=== PATIENT | male | born 1950 | race Caucasian/White ===

== ENCOUNTER 2018-06-23 17:53 | Observation (INO) ==
[2018-06-23] MEDS ORDERED: Heparin 10,000 UNITS/10 ML Vial (for IV use) IV.PUSH STA (18:24)
--- NOTE | 2018-06-23 18:24 | ED ---
HPI General Chief Complaint: Recheck/Abnormal Lab/Rx Stated Complaint: Had cat scan/blood clot rt palm artery Time Seen by Provider: 06/23/18 18:04 Source: patient Mode of arrival: ambulatory Limitations: no limitations History of Present Illness HPI narrative: The patient is a 67-year-old male who presents to the emergency department via private vehicle after he was called for an abnormal CT pulmonary angiogram. Patient has a history of colon cancer that was diagnosed 6 months ago, he is currently undergoing chemotherapy at the [facility] in [place], [place]. The patient's last round of chemotherapy was on Wednesday and Wednesday at the [facility] via a port in the right upper chest wall. The patient states he knows he has a tumor on the right colon just inferior to the liver. The patient did have right lower extremity 2 weeks ago and had an outpatient Doppler which was negative per his report. He denies any history of pulmonary embolism or DVT. He denies any significant chest pain, shortness of breath, pleuritic chest pain, or exertional symptoms. The patient received a call from the [facility] advising him to come to the emergency department. The patient did not have a copy of the CT results or a disc containing the CT thorax. complaint: Reports abnormal lab Initial visit (ago): hour(s) Initial visit for: other Returns today for: called because of abnormal lab/test Description of abnormal result: CT pulmonary angiogram performed at the [facility] that was positive for pulmonary embolism in the right pulmonary artery Symptoms since prior visit: Reports no new symptoms Context: Reports called for abnormal lab result Associated symptoms: Reports none Related Data Home Medications Medication Instructions Recorded Confirmed omeprazole 1 tab PO DAILY 06/23/18 06/23/18 potassium chloride See Label Instructions .ROUTE 06/23/18 06/23/18 .COMPLEX Allergies Allergy/AdvReac Type Severity Reaction Status Date / Time No Known Allergies Allergy Verified 06/23/18 17:58 Review of Systems ROS: all other systems reviewed are negative PMFSH Medical History Medical History Colon cancer (Acute) History of radiation therapy (Acute) Surgical History Surgical History History of bowel resection (Acute) History of vascular access device (Acute) Hx of BKA (Acute) Status post chemotherapy, time since less than 4 weeks (Acute) Social History Social History Smoking Status: Former smoker How Often Do You Have a Drink Containing Alcohol: Never Exam Narrative Exam Narrative: GENERAL: Awake, alert, very pleasant 67-year-old male who appears his stated age and is in no acute respiratory distress. SKIN: Focused skin assessment warm/dry. HEAD: Atraumatic. Normocephalic. EYES: No injection or drainage. No icterus. ENT: No nasal bleeding or discharge. Mucous membranes pink and moist. NECK: Trachea midline. No JVD. CARDIOVASCULAR: Regular rate and rhythm. No murmur appreciated. Heart rate in the 60s. RESPIRATORY: No accessory muscle use. Clear to auscultation. Breath sounds equal bilaterally. GASTROINTESTINAL: Abdomen soft, non-tender, nondistended. MUSCULOSKELETAL: Left below-knee amputation with prosthesis in place. Mild edema the right lower extremity. NEUROLOGICAL: Awake and alert. No obvious cranial nerve deficits. Motor grossly within normal limits. Normal speech. PSYCHIATRIC: Appropriate mood and affect; insight and judgment normal. Course Initial Documented Vital Signs Temperature 98.0 F 06/23/18 17:56 Pulse Rate 53 L 06/23/18 17:56 Respiratory Rate 16 06/23/18 17:56 Blood Pressure 191/82 H 06/23/18 17:56 Pulse Oximetry 98 06/23/18 17:56 Last Documented Vital Signs Temperature 98.0 F 06/23/18 17:56 Pulse Rate 53 L 06/23/18 17:56 Respiratory Rate 16 06/23/18 17:56 Blood Pressure 191/82 H 06/23/18 17:56 Pulse Oximetry 97 06/23/18 18:16 Medical Decision Making MDM Narrative Medical decision making narrative: The patient's port was accessed. We attempted to obtain the CT results from the [facility] to evaluate the burden of the pulmonary embolism on CT. The patient does have a risk factor with colon cancer and right lower extremity edema. Patient may need an echocardiogram to evaluate for right ventricular strain and a report of the CT to evaluate the burden of the pulmonary embolism. I discussed the patient with Dr. Smith who agrees with admission and recommends heparin until the studies are obtained. The patient was in no distress in the emergency department, no evidence of dyspnea, tachycardia, or tachypnea. I believe the patient can go on a heparin drip to a telemetry bed and we will attempt to obtain the CT results from the [facility]. However, it is 623 when we are attempting to obtain records from the [facility]. We were able to obtain CT results. CT of the chest revealed intraluminal filling defects within the pulmonary artery branch directed to the posterior segment of the right lower lobe suggestive of active pulmonary embolic disease, subtle filling defect in a branch point of the pulmonary artery directed to the lingular segments of the left upper lobe could represent an additional tiny embolus. The patient's BNP is minimally elevated, troponin is negative. I believe that the patient's echocardiogram is negative for right ventricular strain tomorrow the patient most likely can be transitioned to oral anticoagulants and discharged home. Medical Screen Exam Complete: Yes Emergency Medical Condition: Yes Differential Diagnosis Differential Diagnosis: Differential diagnosis includes pulmonary embolism, DVT , hypercoagulopathy, colon cancer, pleural effusion, pneumonia, bronchitis. Lab Data Lab results reviewed: Yes I reviewed the patient's lab results. Lab results narrative: The patient's potassium is low at 3.1 Result diagrams: 06/23/18 18:51 06/23/18 18:51 Lab Results 06/23/18 06/23/18 06/23/18 Range/Units 18:51 18:51 18:51 CBC w Diff Auto diff final WBC 3.4 L (4.0-11.0) th/mm3 RBC 2.80 L (4.50-5.90) mil/mm3 Hgb 9.4 L (13.0-17.0) gm/dL Hct 28.0 L (39.0-51.0) % MCV 99.9 (80.0-100.0) fL MCH 33.4 (27.0-34.0) pg MCHC 33.5 (32.0-36.0) % RDW 15.5 (11.6-17.2) % Plt Count 232 (150-450) th/mm3 MPV 6.5 L (7.0-11.0) fL Neut % (Auto) 67.7 (16.0-70.0) % Lymph % (Auto) 28.1 (9.0-44.0) % Centre % (Auto) 1.2 (0.0-8.0) % Eos % (Auto) 2.1 (0.0-4.0) % Baso % (Auto) 0.9 (0.0-2.0) % Neut # (Auto) 2.3 (1.8-7.7) th/mm3 Lymph # (Auto) 1.0 (1.0-4.8) th/mm3 Centre # (Auto) 0.0 (0.0-0.9) th/mm3 Eos # (Auto) 0.1 (0.0-0.4) th/mm3 Baso # (Auto) 0.0 (0.0-0.2) th/mm3 WBC Differential . Differential Comment . PT 10.3 (9.8-11.6) sec INR 1.0 Ratio APTT 25.1 (24.3-30.1) sec Sodium 140 (136-145) meq/L Potassium 3.1 L (3.5-5.1) meq/L Chloride 106 (98-107) meq/L Carbon Dioxide 26.6 (21.0-32.0) meq/L Anion Gap 7 (5-15) meq/L BUN 12 (7-18) mg/dL Creatinine 0.68 (0.60-1.30) mg/dL Estimated GFR Greater than 89 (>89) mL/min Random Glucose 74 (74-106) mg/dL Calcium 7.5 L (8.5-10.1) mg/dL Total Bilirubin 1.0 (0.2-1.0) mg/dL AST 12 L (15-37) U/L ALT 16 (12-78) U/L Alkaline Phosphatase 66 (45-117) U/L Troponin I Less than 0.02 L (0.02-0.05) ng/mL B-Natriuretic Peptide (0-100) pg/mL Total Protein 5.0 L (6.4-8.2) g/dL Albumin 2.5 L (3.4-5.0) g/dL 06/23/18 Range/Units 18:51 CBC w Diff WBC (4.0-11.0) th/mm3 RBC (4.50-5.90) mil/mm3 Hgb (13.0-17.0) gm/dL Hct (39.0-51.0) % MCV (80.0-100.0) fL MCH (27.0-34.0) pg MCHC (32.0-36.0) % RDW (11.6-17.2) % Plt Count (150-450) th/mm3 MPV (7.0-11.0) fL Neut % (Auto) (16.0-70.0) % Lymph % (Auto) (9.0-44.0) % Centre % (Auto) (0.0-8.0) % Eos % (Auto) (0.0-4.0) % Baso % (Auto) (0.0-2.0) % Neut # (Auto) (1.8-7.7) th/mm3 Lymph # (Auto) (1.0-4.8) th/mm3 Centre # (Auto) (0.0-0.9) th/mm3 Eos # (Auto) (0.0-0.4) th/mm3 Baso # (Auto) (0.0-0.2) th/mm3 WBC Differential Differential Comment PT (9.8-11.6) sec INR Ratio APTT (24.3-30.1) sec Sodium (136-145) meq/L Potassium (3.5-5.1) meq/L Chloride (98-107) meq/L Carbon Dioxide (21.0-32.0) meq/L Anion Gap (5-15) meq/L BUN (7-18) mg/dL Creatinine (0.60-1.30) mg/dL Estimated GFR (>89) mL/min Random Glucose (74-106) mg/dL Calcium (8.5-10.1) mg/dL Total Bilirubin (0.2-1.0) mg/dL AST (15-37) U/L ALT (12-78) U/L Alkaline Phosphatase (45-117) U/L Troponin I (0.02-0.05) ng/mL B-Natriuretic Peptide 103 H (0-100) pg/mL Total Protein (6.4-8.2) g/dL Albumin (3.4-5.0) g/dL Discharge Plan Discharge Disposition Patient Disposition: 30 Still Patient Discharge Condition Condition: Stable Discharge Details Diagnosis: Acute pulmonary embolism Physicians Team ED Provider: Shankar Mittal Primary Care Provider: [facility] '[facility] Attending Provider: Abhi Smith Other Providers: Fabián Mary Status ED Status: Admitted Patient
[2018-06-23 19:04] LABS: Baso % (Auto) 0.9 % (0.0-2.0); Eos # (Auto) 0.1 th/mm3 (0.0-0.4); Eos % (Auto) 2.1 % (0.0-4.0); Hemoglobin 9.4 gm/dL (13.0-17.0); Lymph % (Auto) 28.1 % (9.0-44.0); Mean Corpuscular HGB Conc 33.5 % (32.0-36.0); Mean Corpuscular Hemoglobin 33.4 pg (27.0-34.0); Mean Corpuscular Volume 99.9 fL (80.0-100.0); Mean Platelet Volume 6.5 fL (7.0-11.0); Mono % (Auto) 1.2 % (0.0-8.0); Neut # (Auto) 2.3 th/mm3 (1.8-7.7); Neut % (Auto) 67.7 % (16.0-70.0); Platelet Count 232 th/mm3 (150-450); Red Cell Distribution Width 15.5 % (11.6-17.2); White Blood Count 3.4 th/mm3 (4.0-11.0)
[2018-06-23 19:12] LABS: Chloride 106 meq/L (98-107); Potassium 3.1 meq/L (3.5-5.1); Sodium 140 meq/L (136-145)
[2018-06-23 19:14] LABS: Activated Partial Thrombo Time 25.1 sec (24.3-30.1); Prothrombin Time 10.3 sec (9.8-11.6)
[2018-06-23 19:15] LABS: Albumin 2.5 g/dL (3.4-5.0); Anion Gap 7 meq/L (5-15); Blood Urea Nitrogen 12 mg/dL (7-18); Calcium 7.5 mg/dL (8.5-10.1); Carbon Dioxide 26.6 meq/L (21.0-32.0); Glucose,Random 74 mg/dL (74-106)
[2018-06-23 19:18] LABS: Alanine Aminotransferase 16 U/L (12-78)
[2018-06-23 19:19] LABS: Aspartate Aminotransferase 12 U/L (15-37); Glomerular Filtration Rate Greater Than 89 mL/min (>89)
[2018-06-23 19:21] LABS: Alkaline Phosphatase 66 U/L (45-117)
[2018-06-23] MEDS ORDERED: Bisacodyl 10 MG Supp RECTAL PRN (19:28)
[2018-06-23] MEDS ORDERED: Acetaminophen 325 MG Tablet PO PRN (19:28)
--- NOTE | 2018-06-23 19:39 | P.HP ---
History of Present Illness Primary Care Physician: [facility] Chief Complaint: Abnormal CT scan showing pulmonary embolism History of Present Illness: This is a 67-year-old male with a history of recurrent colon cancer status post colectomy, radiation therapy and currently on chemotherapy. Patient underwent follow-up chest, abdominal and pelvic CT earlier today and was informed this afternoon that he needs to present to the emergency department because of a pulmonary embolism involving the right pulmonary artery. Patient is asymptomatic denies chest pain, shortness of breath, dizziness and hemoptysis. He has mild throat tightness with no choking sensation. He has increased right lower extremity swelling with no pain underwent negative Doppler sonogram few weeks ago. Discussed with ED physician, unable to obtain records from NH since it is past 7 pm. Patient will be started on anticoagulation with IV heparin drip which patient agrees. All other systems reviewed negative Inpatient Certification: I certify that the inpatient services were ordered in accordance with Medicare regulations governing the order. This includes certification that hospital inpatient services are reasonable and necessary and in the case of services not specified as inpatient-only under 42 CFR 419.22(n), that they are appropriately provided as inpatient services in accordance to with the 2-midnight benchmark under 43 CFR 412.3(e) Review of Systems All other systems reviewed negative except as stated in HPI PMFSH - History History Provided By: Patient - Medical History Medical History: Medical History (Last Reviewed 06/23/18 @ 19:35 by Abhi Smith MD) Colon cancer History of radiation therapy - Surgical History Surgical History: Surgical History (Last Reviewed 06/23/18 @ 19:35 by Abhi Smith MD) History of bowel resection History of vascular access device Hx of BKA Status post chemotherapy, time since less than 4 weeks - Family History Family History: Family History (Last Updated 06/23/18 @ 19:35 by Abhi Smith MD) Other Family history of cancer - Tobacco History Smoking Status: Former smoker - Alcohol History How Often Do You Have a Drink Containing Alcohol: Never - Immunization History Tetanus Immunization: <5 Years Tetanus Immunization Year if Known: 2014 Hx Influenza Vaccine This Season: No Medications and Allergies Active Medications: Active Medications Acetaminophen (Tylenol) 650 mg PO Q4H PRN PRN Reason: Temp > 100.4 Al Hydroxide/Mg Hydroxide (Milk Of Magnesia Liq) 30 ml PO Q12H PRN PRN Reason: Mild Constipation Bisacodyl (Dulcolax Supp) 10 mg RECTAL DAILY PRN PRN Reason: SEVERE CONSITIPATION Heparin Sodium (Porcine) (Heparin Inj) 2,500 units IV.PUSH UNSCH PRN PRN Reason: aPTT 25-39 Heparin Sodium/Dextrose (Heparin/D5w 25,000 U/250 Ml) 25,000 unit in 250 mls @ 0 mls/hr IV.CONT TITRATE PRN; Protocol PRN Reason: Per Protocol Lactulose (Lactulose Liq) 30 ml PO DAILY PRN PRN Reason: SEVERE CONSITIPATION Metoclopramide HCl (Reglan Inj) 5 mg IV.PUSH Q6HR PRN; Protocol PRN Reason: NAUSEA OR VOMITING Non-Formulary Medication (Omeprazole [Omeprazole]) 1 tab PO DAILY COSME Ondansetron HCl (Zofran Inj) 4 mg IV.PUSH Q6H PRN PRN Reason: NAUSEA OR VOMITING Potassium Chloride (K-Dur) 20 meq PO ONCE ONE Stop: 06/23/18 19:25 Sennosides (Senokot) 17.2 mg PO Q12H PRN PRN Reason: Moderate Constipation Sodium Chloride (Ns Flush) 2 ml IV.FLUSH PRN PRN PRN Reason: FLUSH AFTER USING IV ACCESS Allergies Allergy/AdvReac Type Severity Reaction Status Date / Time No Known Allergies Allergy Verified 06/23/18 17:58 Home Medications Medication Instructions Recorded Confirmed Type omeprazole 1 tab PO DAILY 06/23/18 06/23/18 History potassium chloride See Label Instructions .ROUTE 06/23/18 06/23/18 History .COMPLEX Exam Vital signs: Vital Signs 06/23/18 17:56 06/23/18 18:16 Temperature 98.0 F Pulse Rate 53 L Respiratory Rate 16 Blood Pressure 191/82 H Pulse Oximetry 98 97 Intake & Output 06/23/18 06/23/18 06/24/18 06:59 18:59 06:59 Weight 76 kg Narrative: GENERAL: Well-developed, well-nourished in no distress SKIN: Warm and dry. HEAD: Atraumatic. Normocephalic. EYES: Pupils equal and round. No scleral icterus. No injection or drainage. ENT: No nasal bleeding or discharge. Mucous membranes pink and moist. NECK: Trachea midline. No JVD. CARDIOVASCULAR: Regular rate and rhythm. Distant heart sound RESPIRATORY: No accessory muscle use. Clear to auscultation. Breath sounds equal bilaterally. GASTROINTESTINAL: Abdomen soft, non-tender, nondistended. MUSCULOSKELETAL: Extremities without clubbing, cyanosis with right lower extremity pitting. Left BKA prosthesis in place NEUROLOGICAL: Awake and alert. No obvious cranial nerve deficits. Motor grossly within normal limits. Five out of 5 muscle strength in the arms and legs. Normal speech. PSYCHIATRIC: Appropriate mood and affect; insight and judgment normal. Results - Labs CBC & Chem 7: 06/23/18 18:51 06/23/18 18:51 Labs: Laboratory Results - last 24 hr 06/23/18 06/23/18 06/23/18 18:51 18:51 18:51 CBC w Diff Auto diff final WBC 3.4 L RBC 2.80 L Hgb 9.4 L Hct 28.0 L MCV 99.9 MCH 33.4 MCHC 33.5 RDW 15.5 Plt Count 232 MPV 6.5 L Neut % (Auto) 67.7 Lymph % (Auto) 28.1 Treasure % (Auto) 1.2 Eos % (Auto) 2.1 Baso % (Auto) 0.9 Neut # (Auto) 2.3 Lymph # (Auto) 1.0 Treasure # (Auto) 0.0 Eos # (Auto) 0.1 Baso # (Auto) 0.0 WBC Differential . Differential Comment . PT 10.3 INR 1.0 APTT 25.1 Sodium 140 Potassium 3.1 L Chloride 106 Carbon Dioxide 26.6 Anion Gap 7 BUN 12 Creatinine 0.68 Estimated GFR Greater than 89 Random Glucose 74 Calcium 7.5 L Total Bilirubin 1.0 AST 12 L ALT 16 Alkaline Phosphatase 66 Troponin I Less than 0.02 L B-Natriuretic Peptide Total Protein 5.0 L Albumin 2.5 L 06/23/18 18:51 CBC w Diff WBC RBC Hgb Hct MCV MCH MCHC RDW Plt Count MPV Neut % (Auto) Lymph % (Auto) Treasure % (Auto) Eos % (Auto) Baso % (Auto) Neut # (Auto) Lymph # (Auto) Treasure # (Auto) Eos # (Auto) Baso # (Auto) WBC Differential Differential Comment PT INR APTT Sodium Potassium Chloride Carbon Dioxide Anion Gap BUN Creatinine Estimated GFR Random Glucose Calcium Total Bilirubin AST ALT Alkaline Phosphatase Troponin I B-Natriuretic Peptide 103 H Total Protein Albumin Caprini VTE Risk Assessment Caprini VTE Risk Assessment: Moderate/High Risk (score >= 2) Caprini Risk Assessment Model: Point Value = 1 Point Value = 2 Point Value = 3 Point Value = 5 Age 41-60 Minor surgery BMI > 25 kg/m2 Swollen legs Varicose veins or History of unexplained or recurrent spontaneous Oral contraceptives or hormone replacement Sepsis (< 1 month) Serious lung disease, including pneumonia (< 1 month) Abnormal pulmonary function Acute myocardial infarction Congestive heart failure (< 1 month) History of inflammatory bowel disease Medical patient at bed rest Age 61-74 Arthroscopic surgery Major open surgery (> 45 min) Laparoscopic surgery (> 45 min) Malignancy Confined to bed (> 72 hours) Immobilizing plaster cast Central venous access Age >= 75 History of VTE Family history of VTE Factor V Leiden Prothrombin [id number] Lupus anticoagulant Anticardiolipin antibodies Elevated serum homocysteine Heparin-induced thrombocytopenia Other congenital or acquired thrombophilia Stroke (< 1 month) Elective arthroplasty Hip, pelvis, or leg fracture Acute spinal cord injury (< 1 month) Prophylaxis Regimen: Total Risk Factor Score Risk Level Prophylaxis Regimen 0-1 Low Early ambulation 2 Moderate Order ONE of the following: *Sequential Compression Device (SCD) *Heparin 5000 units SQ BID 3-4 Higher Order ONE of the following medications: *Heparin 5000 units SQ TID *Enoxaparin/Lovenox 40 mg SQ daily (WT < 150 kg, CrCl > 30 mL/min) *Enoxaparin/Lovenox 30 mg SQ daily (WT < 150 kg, CrCl > 10-29 mL/min) *Enoxaparin/Lovenox 30 mg SQ BID (WT < 150 kg, CrCl > 30 mL/min) AND/OR *Sequential Compression Device (SCD) 5 or more Highest Order ONE of the following medications: *Heparin 5000 units SQ TID (Preferred with Epidurals) *Enoxaparin/Lovenox 40 mg SQ daily (WT < 150 kg, CrCl > 30 mL/min) *Enoxaparin/Lovenox 30 mg SQ daily (WT < 150 kg, CrCl > 10-29 mL/min) *Enoxaparin/Lovenox 30 mg SQ BID (WT < 150 kg, CrCl > 30 mL/min) AND *Sequential Compression Device (SCD) Assessment and Plan - Plan This is a 57-year-old male with a history of recurrent colon cancer status post surgery, port placement, radiation therapy and currently on chemotherapy. Reportedly had a right pulmonary artery embolism after undergoing follow-up chest, abdominal and pelvic CT Right pulmonary artery embolism. He needs anticoagulation and will start IV heparin drip. Obtain EKG, echocardiogram and official results of outpatient CT. Pulmonary has been consulted Elevated BP. No history of hypertension. Will monitor with as needed Vasotec and p.o. clonidine Hypokalemia potassium of 3.1. Patient history of diarrhea from multiple colon surgeries. Check magnesium and replace with 40 mEq p.o. potassium. Discharge Planning: Home in 1-2 days
[2018-06-23] MEDS: Heparin Drip 25,000 UNIT/250 ML BAG IV.CONT PRN (20:00)
--- NOTE | 2018-06-23 20:22 | MB ---
cc: Fabián Mary MD, Jose R MD DATE: 06/23/2018 REQUESTING PHYSICIAN: Abhi Smith MD REASON FOR CONSULTATION: Pulmonary management. HISTORY OF PRESENT ILLNESS: Mr. Cooper is a pleasant 67-year-old white male with a history of CA of the colon. His first symptoms were diagnosed in 2005. At that time, he says that he had surgery and radiation treatment done and got chemotherapy after that. He has had recurrence of the cancer 6 times and he has received 6 different surgeries. He follows at the [facility]. He recently went over there for evaluation of the cancer because he has a mass under the liver. He had a CT of the chest done which showed he has a pulmonary embolism. The patient was advised to come to the hospital over here. Normally, he is up, around and active. Denies any shortness of breath. No cough or sputum production. No prolonged bed rest. No recent travel. PAST MEDICAL HISTORY: Significant for: 1. History of CA of the colon, status post multiple surgeries, chemotherapy and radiation treatment. 2. Left BKA because of an industrial accident. 3. Chronic diarrhea. MEDICATIONS: At home, he takes only diarrhea medications, and currently, he has been placed on a heparin drip. ALLERGIES: NO KNOWN DRUG ALLERGIES. SOCIAL HISTORY: He has a history of smoking more than 40 years 2 packs a day, which he quit about 10 years ago. He used to drink but quit now. FAMILY HISTORY: He is and lives with his girlfriend. He has 5 children who live [address] in [place]. REVIEW OF SYSTEMS: He has lost about 20-25 pounds weight. He has no fevers. There is no bleeding from any site. No prior history of any DVT or pulmonary embolism. No heart or lung problems. No bleeding or clotting disorders. PHYSICAL EXAMINATION: GENERAL: Reveals a pleasant elderly male not in acute distress. VITAL SIGNS: Blood pressure 191/82, heart rate 53, respirations 16, temperature 98. HEENT: Pupils are equal and reactive to light. Oral mucosa and nasal mucosa are normal. CHEST: Equal bilaterally. No rhonchi. HEART: S1, S2 normal. ABDOMEN: Soft, nondistended. Bowel sounds are present. EXTREMITIES: He has a left BKA. CENTRAL NERVOUS SYSTEM: He is alert and oriented x 3. No focal deficit. LABORATORY DATA: WBC count 7.1, hemoglobin 9.4, hematocrit 28, MCV 99, platelet count 232. Electrolytes are pending. INR is pending. IMPRESSION: 1. Pulmonary embolism diagnosed at the [facility] today with a CTA. Report is not available. He was advised to come over here. 2. Recurrent carcinoma of the colon. 3. Left below-knee amputation. 4. Chronic diarrhea. 5. Weight loss. PLAN: I discussed with the patient. He is started on a heparin drip. He will be maintained on anticoagulation. I discussed with him the risks and benefits of anticoagulation, which he understood. He will be started on a heparin drip and then he will be transitioned to oral anticoagulation treatment. He is stable on room air. Further treatment will depend upon the course in the hospital. Thank you, Dr. Smith, for this consultation. MD RENEE Bahena/magnus/juventino , 07:13 PM , 07:24 PM RAGHU
[2018-06-24] MEDS ORDERED: Heparin 10,000 UNITS/10 ML Vial (for IV use) IV.PUSH PRN (00:25)
[2018-06-24 07:31] LABS: Baso % (Auto) 0.9 % (0.0-2.0); Eos # (Auto) 0.1 th/mm3 (0.0-0.4); Eos % (Auto) 4.4 % (0.0-4.0); Hematocrit 27.1 % (39.0-51.0); Hemoglobin 9.4 gm/dL (13.0-17.0); Lymph # (Auto) 1.1 th/mm3 (1.0-4.8); Lymph % (Auto) 34.2 % (9.0-44.0); Mean Corpuscular HGB Conc 34.5 % (32.0-36.0); Mean Corpuscular Hemoglobin 34.3 pg (27.0-34.0); Mean Corpuscular Volume 99.3 fL (80.0-100.0); Mean Platelet Volume 6.6 fL (7.0-11.0); Mono % (Auto) 1.2 % (0.0-8.0); Neut # (Auto) 1.9 th/mm3 (1.8-7.7); Neut % (Auto) 59.3 % (16.0-70.0); Platelet Count 224 th/mm3 (150-450); Red Blood Count 2.74 mil/mm3 (4.50-5.90); Red Cell Distribution Width 15.6 % (11.6-17.2); White Blood Count 3.1 th/mm3 (4.0-11.0)
[2018-06-24 07:42] LABS: Chloride 104 meq/L (98-107); Potassium 3.1 meq/L (3.5-5.1); Sodium 140 meq/L (136-145)
[2018-06-24 07:46] LABS: Anion Gap 7 meq/L (5-15); Blood Urea Nitrogen 9 mg/dL (7-18); Carbon Dioxide 28.6 meq/L (21.0-32.0); Glucose,Random 73 mg/dL (74-106)
[2018-06-24 07:49] LABS: Glomerular Filtration Rate Greater Than 89 mL/min (>89)
[2018-06-24 09:28] VITALS: BP 140/82; RESP 15; TEMP 98.1; O2SAT 98
--- NOTE | 2018-06-24 10:45 | P.PN ---
Subjective Interval history: F/U PE. No sxs agrees with Xarelto . ECHO unremarkable Physical Exam Vital signs: Vital Signs 06/23/18 17:56 06/23/18 18:16 06/23/18 19:28 Temperature 98.0 F Pulse Rate 53 L 45 L Respiratory Rate 16 16 Blood Pressure 191/82 H 169/73 H Pulse Oximetry 98 97 99 06/23/18 20:00 06/23/18 21:57 06/23/18 23:30 Temperature 96.5 F L Pulse Rate 49 L 45 L Respiratory Rate 20 17 Blood Pressure 185/80 H 165/70 H Pulse Oximetry 98 99 95 06/24/18 00:00 06/24/18 00:05 06/24/18 04:00 Temperature 97.5 F L 98.1 F Pulse Rate 42 L 45 L 50 L Respiratory Rate 20 15 Blood Pressure 127/58 L 140/82 Pulse Oximetry 95 98 Intake & Output 06/23/18 06/24/18 06/24/18 18:59 06:59 18:59 Intake Total 240 / 240 Balance 240 / 240 Weight 76 kg 76.8 kg Intake: Oral 240 / 240 Other: Weight On Admission 76.4 kg Narrative: GENERAL: Well-developed, well-nourished in no distress SKIN: Warm and dry. CARDIOVASCULAR: Regular rate and rhythm. Distant heart sound RESPIRATORY: No accessory muscle use. Clear to auscultation. Breath sounds equal bilaterally. GASTROINTESTINAL: Abdomen soft, non-tender, nondistended. MUSCULOSKELETAL: Extremities without clubbing, cyanosis with right lower extremity pitting. Left BKA prosthesis in place NEUROLOGICAL: Awake and alert. No obvious cranial nerve deficits. Motor grossly within normal limits. Five out of 5 muscle strength in the arms and legs. Normal speech. PSYCHIATRIC: Appropriate mood and affect; insight and judgment normal. Results - Labs CBC & Chem 7: 06/24/18 06:50 06/24/18 06:50 Laboratory Results - last 24 hr 06/23/18 06/23/18 06/23/18 18:31 18:51 18:51 CBC w Diff Auto diff final WBC 3.4 L RBC 2.80 L Hgb 9.4 L Hct 28.0 L MCV 99.9 MCH 33.4 MCHC 33.5 RDW 15.5 Plt Count 232 MPV 6.5 L Neut % (Auto) 67.7 Lymph % (Auto) 28.1 [place] % (Auto) 1.2 Eos % (Auto) 2.1 Baso % (Auto) 0.9 Neut # (Auto) 2.3 Lymph # (Auto) 1.0 [place] # (Auto) 0.0 Eos # (Auto) 0.1 Baso # (Auto) 0.0 WBC Differential . Differential Comment . PT 10.3 INR 1.0 APTT 25.1 Sodium Potassium Chloride Carbon Dioxide Anion Gap BUN Creatinine Estimated GFR Random Glucose Calcium Magnesium 1.7 Total Bilirubin AST ALT Alkaline Phosphatase Troponin I B-Natriuretic Peptide Total Protein Albumin 06/23/18 06/23/18 06/24/18 18:51 18:51 01:15 CBC w Diff WBC RBC Hgb Hct MCV MCH MCHC RDW Plt Count MPV Neut % (Auto) Lymph % (Auto) Z[place] % (Auto) Eos % (Auto) Baso % (Auto) Neut # (Auto) Lymph # (Auto) Zapata # (Auto) Eos # (Auto) Baso # (Auto) WBC Differential Differential Comment PT INR APTT 80.5 H D Sodium 140 Potassium 3.1 L Chloride 106 Carbon Dioxide 26.6 Anion Gap 7 BUN 12 Creatinine 0.68 Estimated GFR Greater than 89 Random Glucose 74 Calcium 7.5 L Magnesium Total Bilirubin 1.0 AST 12 L ALT 16 Alkaline Phosphatase 66 Troponin I Less than 0.02 L B-Natriuretic Peptide 103 H Total Protein 5.0 L Albumin 2.5 L 06/24/18 06/24/18 06/24/18 06:50 06:50 06:50 CBC w Diff Auto diff final WBC 3.1 L RBC 2.74 L Hgb 9.4 L Hct 27.1 L MCV 99.3 MCH 34.3 H MCHC 34.5 RDW 15.6 Plt Count 224 MPV 6.6 L Neut % (Auto) 59.3 Lymph % (Auto) 34.2 Z[place] % (Auto) 1.2 Eos % (Auto) 4.4 H Baso % (Auto) 0.9 Neut # (Auto) 1.9 Lymph # (Auto) 1.1 [place] # (Auto) 0.0 Eos # (Auto) 0.1 Baso # (Auto) 0.0 WBC Differential . Differential Comment . PT INR APTT Sodium 140 Potassium 3.1 L Chloride 104 Carbon Dioxide 28.6 Anion Gap 7 BUN 9 Creatinine 0.65 Estimated GFR Greater than 89 Random Glucose 73 L Calcium 8.0 L Magnesium 1.8 Total Bilirubin AST ALT Alkaline Phosphatase Troponin I B-Natriuretic Peptide Total Protein Albumin 06/24/18 08:15 CBC w Diff WBC RBC Hgb Hct MCV MCH MCHC RDW Plt Count MPV Neut % (Auto) Lymph % (Auto) [place] % (Auto) Eos % (Auto) Baso % (Auto) Neut # (Auto) Lymph # (Auto) Zapata # (Auto) Eos # (Auto) Baso # (Auto) WBC Differential Differential Comment PT INR APTT 54.0 H D Sodium Potassium Chloride Carbon Dioxide Anion Gap BUN Creatinine Estimated GFR Random Glucose Calcium Magnesium Total Bilirubin AST ALT Alkaline Phosphatase Troponin I B-Natriuretic Peptide Total Protein Albumin - Procedures none Assessment and Plan - Plan This is a 57-year-old male with a history of recurrent colon cancer status post surgery, port placement, radiation therapy and currently on chemotherapy. Reportedly had a right pulmonary artery embolism after undergoing follow-up chest, abdominal and pelvic CT Pulmonary embolism. Stable on anticoagulation switch IV heparin drip to Xarelto( pt choice) He was counselled. EKG, echocardiogram and official results of outpatient CT reviewed. Elevated BP. No history of hypertension. Will monitor with as needed Vasotec and p.o. clonidine. Imporved Hypokalemia potassium of 3.1. Patient history of diarrhea from multiple colon surgeries. Replaced with 60 mEq p.o. potassium. Mild leukopenia and anemia on chemo. O/p f/u Discharge Planning: Discharge patient to home Condition on discharge: Improved Regular Diet as tolerated Ad Marlin activity No driving Rx written: Xarelto Follow-up with primary care physician and pulmo
[2018-06-24] MEDS: Heparin Drip 25,000 UNIT/250 ML BAG IV.CONT PRN (14:31)
--- NOTE | 2018-06-24 14:46 | ECHRPT ---
Indication: Shortness of Breath CONCLUSIONS Normal left ventricular size. Wall thickness is normal. The left ventricular systolic function is normal with an estimated ejection fraction in the range o f 50-55%. No regional wall motion abnormalities are present. Minimal calcification of the anterior mitral valve leaflet. Mild mitral valve regurgitation. There is trace tricuspid valve regurgitation. The estimated pulmonary arterial pressure is 34 mmHg. BP: / HR: Rhythm: MEASUREMENTS (Male / Female) Normal Values Technical Quality:Fair 2D ECHO LV Diastolic Diameter PLAX 4.7 cm 4.2 - 5.9 / 3.9 - 5.3 cm LV Systolic Diameter PLAX 3.4 cm IVS Diastolic Thickness 1.1 cm 0.6 - 1.0 / 0.6 - 0.9 cm LVPW Diastolic Thickness 1.0 cm 0.6 - 1.0 / 0.6 - 0.9 cm LV Relative Wall Thickness 0.5 RV Internal Dim ED PLAX 3.4 cm LVOT Diameter 2.4 cm Aortic Root Diameter 3.2 cm LA Systolic Diameter LX 3.8 cm 3.0 - 4.0 / 2.7 - 3.8 cm M-MODE AV Cusp Separation MM 2.5 cm DOPPLER AV Peak Velocity 93.0 cm/s AV Peak Gradient 3.5 mmHg Mitral E Point Velocity 98.7 cm/s Mitral A Point Velocity 94.8 cm/s Mitral E to A Ratio 1.0 LV E' Lateral Velocity 13.9 cm/s Mitral E to LV E' Lateral Ratio 7.1 LV E' Septal Velocity 8.6 cm/s Mitral E to LV E' Septal Ratio 11.5 TR Peak Velocity 243.0 cm/s TR Peak Gradient 23.6 mmHg Right Atrial Pressure 10.0 mmHg Pulmonary Artery Systolic Pressu 33.6 mmHg Right Ventricular Systolic Press 33.6 mmHg PV Peak Velocity 97.7 cm/s PV Peak Gradient 3.8 mmHg FINDINGS LEFT VENTRICLE Normal left ventricular size. Wall thickness is normal. The left ventricular systolic function is normal with an estimated ejection fraction in the range o f 50-55%. No regional wall motion abnormalities are present. RIGHT VENTRICLE Normal right ventricular size and systolic function. LEFT ATRIUM The left atrial size is normal. RIGHT ATRIUM The right atrial size is normal. ATRIAL SEPTUM Normal atrial septal thickness without atrial level shunting by limited color doppler interrogation. AORTA The aortic root and proximal ascending aorta are normal in size on limited imaging. MITRAL VALVE Minimal calcification of the anterior mitral valve leaflet. Mild mitral valve regurgitation. AORTIC VALVE Trileaflet aortic valve. No aortic valve stenosis or regurgitation. TRICUSPID VALVE There is trace tricuspid valve regurgitation. The estimated pulmonary arterial pressure is 34 mmHg. PULMONARY VALVE Trivial pulmonary valve regurgitation. VESSELS The inferior vena cava is normal in size. PERICARDIUM No pericardial effusion. Joe Ott MD (Electronically Signed) Final Date:24 June 2018 14:45
[2018-06-24 15:26] VITALS: PULSE 44
[2018-06-24] MEDS ORDERED: Rivaroxaban 15 MG Tablet PO ONE (15:30)
--- NOTE | 2018-06-24 16:09 | ECG ---
Date Performed: 06/23/2018 Time Performed: 19:39:38 PTAGE: 67 years EKG: SINUS BRADYCARDIA WITH FIRST DEGREE AV BLOCK RIGHT BUNDLE BRANCH BLOCK When compared to pre vious tracing, right bundle branch block is Now present. ABNORMAL ECG PREVIOUS TRACING : 02/28/2008 12.25 DOCTOR: Heriberto Street Interpretating Date/Time 06/24/2018 16:07:45
--- NOTE | 2018-06-24 18:18 | P.PNPL ---
Subjective Interval history: 67 YOWM with Ca colon, PE Breathing well Denies sob No CP Echo normal EF, RSVP 34 Physical Exam Vital signs: Vital Signs 06/23/18 18:16 06/23/18 19:28 06/23/18 20:00 Temperature 96.5 F L Pulse Rate 45 L 49 L Respiratory Rate 16 20 Blood Pressure 169/73 H 185/80 H Pulse Oximetry 97 99 98 06/23/18 21:57 06/23/18 23:30 06/24/18 00:00 Temperature 97.5 F L Pulse Rate 45 L 42 L Respiratory Rate 17 20 Blood Pressure 165/70 H 127/58 L Pulse Oximetry 99 95 95 06/24/18 00:05 06/24/18 04:00 06/24/18 08:00 Temperature 98.1 F Pulse Rate 45 L 50 L 44 L Respiratory Rate 15 Blood Pressure 140/82 Pulse Oximetry 98 Intake & Output 06/23/18 06/24/18 06/24/18 18:59 06:59 18:59 Intake Total 240 / 240 252 / 252 Balance 240 / 240 252 / 252 Weight 76 kg 76.8 kg Intake: IV 252 / 252 Heparin/D5W 25,000 U/250 mL 25, 252 / 252 000 unit In 250 ml @ Per Protocol IV.CONT TITRATE PRN Rx #:[id number] Oral 240 / 240 Other: Date of Last Bowel Movement 06/23/18 Weight On Admission 76.4 kg GENERAL: Elderly WM NAD SKIN: Warm and dry. HEAD: Normocephalic. EYES: No scleral icterus. No injection or drainage. NECK: Supple, trachea midline. No JVD or lymphadenopathy. CARDIOVASCULAR: Regular rate and rhythm without murmurs, gallops, or rubs. RESPIRATORY: Breath sounds equal bilaterally. No accessory muscle use. GASTROINTESTINAL: Abdomen soft, non-tender, nondistended. MUSCULOSKELETAL: No cyanosis, or edema. Left BKA BACK: Nontender without obvious deformity. No CVA tenderness. Assessment and Plan - Plan IMPRESSION: 1. Pulmonary embolism diagnosed at the [facility] today with a CTA. Report is not available. He was advised to come over here. 2. Recurrent carcinoma of the colon. 3. Left below-knee amputation. 4. Chronic diarrhea. 5. Weight loss. PLAN: Anticoagulation Transition to Xarelto Will need atleat 6 months of anticoagulation He will Follow at [facility] and TRENT his oncologist for FU and Hypercoagulation AYALA
== END 2018-06-24 16:05 | disposition home or self-care (01) ==
LOC: PHED 17:53 → INTOOBSV 18:39 → PHEDA 18:39 → PH3 21:55
PROVIDERS: ADMIT Internal Medicine; ATTEND Internal Medicine